=== PATIENT | female | born 1985 | race Caucasian/White ===

== ENCOUNTER 2017-07-22 15:30 | Inpatient (IN) | payer OTHER ==
[~2017-07-22] VITALS: Ht 165.1 cm; Wt 73.9 kg
[2017-08-08] MEDS ORDERED: PRENATAL FORMU1 EAC1 PO (01:42)
== END 2017-08-10 10:47 | disposition home or self-care (01) | DRG 775 ==
LOC: OB/GYN 08-06 15:30 → LDR 08-08 01:40 → OB/GYN 08-08 06:07
PROC: 10E0XZZ Delivery of Products of Conception, External Approach (ICD-10-PCS; principal; 2017-08-08)
PROC: 10907ZC Drainage of Amniotic Fluid, Therapeutic from Products of Conception, Via Natural or Artificial Opening (ICD-10-PCS; 2017-08-08)
PROC: 4A033R1 Measurement of Arterial Saturation, Peripheral, Percutaneous Approach (ICD-10-PCS; 2017-08-08)
PROC: 4A1HXCZ Monitoring of Products of Conception, Cardiac Rate, External Approach (ICD-10-PCS; 2017-08-08)
DX: O69.81X0 Labor and delivery complicated by cord around neck, without compression, not applicable or unspecified (principal); Z3A.40 40 weeks gestation of pregnancy; Z37.0 Single live birth

== ENCOUNTER → 2017-08-06 | Outpatient (CLI) | payer OTHER ==
[~2017-08-06] MED LIST: PRENATAL FORMU1 EAC1 PO
== END | disposition home or self-care (01) ==
LOC: NST 14:29
DX: Z34.83 Encounter for supervision of other normal pregnancy, third trimester (principal)